=== PATIENT | female | born 1990 | race Caucasian/White ===

== ENCOUNTER 2020-05-19 21:16 | Emergency (ER) | payer MEDICAID ==
[~2020-05-19] VITALS: Ht 167.6 cm; Wt 81.6 kg
--- NOTE | 2020-05-19 21:59 | NUR ---
BIBS C/O CHRONIC LOW BACK PAIN RADAITING TO RLE, WORSE TONIGHT. TOOK MOTRIN AND TYLENOL WITH NO RELEIF TO ER BED 6
[2020-05-19] MEDS ORDERED: MORPHINE SULFATE INJ 2 MG/ML DISP.SYRIN IM ONE (22:30)
[2020-05-19] MEDS ORDERED: KETOROLAC TROMETHAMINE INJ 60 MG/2 ML VIAL IM ONE (22:30)
[2020-05-19] MEDS ORDERED: ONDANSETRON 4 MG TAB.RAPDIS SL ONE (22:30)
[2020-05-19] MEDS ORDERED: MORPHINE SULFATE INJ 2 MG/ML DISP.SYRIN ONE (22:41)
[2020-05-19] MEDS ORDERED: ONDANSETRON 4 MG TAB.RAPDIS ONE (22:41)
[2020-05-19] MEDS ORDERED: KETOROLAC TROMETHAMINE INJ 30 MG/ML VIAL ONE (22:42)
[2020-05-19] MEDS ORDERED: MORPHINE SULFATE INJ 4 MG/ML DISP.SYRIN ONE (22:44)
[2020-05-19 23:25] VITALS: BP 144/87
== END 2020-05-19 23:25 | disposition home or self-care (01) ==
LOC: ER 21:22
DX: M54.16 Radiculopathy, lumbar region (principal); Z88.0 Allergy status to penicillin
CPT/HCPCS: 96372 ×2; 99284; J1885; J2270; Q0162